=== PATIENT | female | born 1960 | race Caucasian/White ===

== ENCOUNTER 2020-01-09 16:06 | Emergency (ER) | payer OTHER | END 2020-01-09 16:12 | disposition home or self-care (01) | LOC: JVIRT 16:06 | DX: Z11.59 Encounter for screening for other viral diseases (principal) | CPT/HCPCS: C9803; Q3014-GT; U0003 ==

== ENCOUNTER 2020-01-22 14:46 | Emergency (ER) | payer OTHER | END 2020-01-22 15:17 | disposition home or self-care (01) | LOC: JVIRT 14:46 | DX: Z11.59 Encounter for screening for other viral diseases (principal) | CPT/HCPCS: C9803; Q3014-GT; U0003 ==

== ENCOUNTER 2020-09-10 18:00 | Emergency (ER) | payer OTHER ==
[2020-09-10 18:12] VITALS: BP 128/73; PULSE 71; TEMP 97.8; BMI 28.1
[2020-09-10] MEDS ORDERED: DIPHTH,PERTUSS(ACELL),TET 0.5 ML DISP.SYRIN IM ONE ×2 (20:04→20:19)
[2020-09-10] MEDS ORDERED: ACETAMINOPHEN 325 MG TABLET (FP) PO ONE (20:24)
[2020-09-10] MEDS ORDERED: ACETAMINOPHEN 325 MG TABLET (FP) ONE (20:26)
== END 2020-09-10 21:05 | disposition home or self-care (01) ==
LOC: FER 18:00
PROC: 3E0234Z Introduction of Serum, Toxoid and Vaccine into Muscle, Percutaneous Approach (ICD-10-PCS; principal; 2020-09-10)
DX: S00.83XA Contusion of other part of head, initial encounter (principal); S50.311A Abrasion of right elbow, initial encounter; S50.312A Abrasion of left elbow, initial encounter; S80.211A Abrasion, right knee, initial encounter; S80.212A Abrasion, left knee, initial encounter
CPT/HCPCS: 70450-TC; 90715; 99284-25